=== PATIENT | female | born 1955 | race Caucasian/White ===

== ENCOUNTER 2016-10-10 07:03 | Emergency (ER) | payer OTHER ==
[2016-10-10 07:16] VITALS: BP 173/82
--- NOTE | 2016-10-10 07:25 | UC ---
Throat Pain/Nasal Dionisio HPI - HPI Summary HPI Summary: SORE THROAT X 5 DAYS + COUGH , CHEST CONGESTION, + CHILLS, NO FEVER + EXPOSURE TO STREP - History of Current Complaint Chief Complaint: UCRespiratory Stated Complaint: SORE THROAT COUGH Time Seen by Provider: 10/10/16 07:05 Hx Obtained From: Patient Hx Last Menstrual Period: n/a ?: No Onset/Duration: Gradual Onset, Lasting Days - 5, Still Present Severity: Moderate Cough: Nonproductive Associated Signs & Symptoms: Positive: Nasal Discharge. Negative: Dysphagia, Drooling, Wheezing, Sinus Discomfort, Fever, Vomiting, Rash PMH/Surg Hx/FS Hx/Imm Hx Endocrine History Of: Denies: Diabetes, Thyroid Disease Cardiovascular History Of: Reports: Hypertension Denies: Cardiac Disorders Respiratory History Of: Denies: COPD GI/ History Of: Reports: Ulcer - 2013 - Surgical History Surgical History: Yes Surgery Procedure, Year, and Place: hysterectomy, right knee surgery 08/30/15 - Family History Known Family History: Positive: Cardiac Disease, Hypertension - Social History Alcohol Use: Rare Substance Use Type: None Smoking Status (MU): Light Every Day Tobacco Smoker Type: Cigarettes Amount Used/How Often: 5 cigarettes daily Review of Systems Constitutional: Chills, Fatigue Skin: Negative Eyes: Negative ENT: Sore Throat, Nasal Discharge Respiratory: Cough Cardiovascular: Negative Gastrointestinal: Negative Genitourinary: Negative All Other Systems Reviewed And Are Negative: Yes Physical Exam Triage Information Reviewed: Yes Appearance: Well-Appearing, No Pain Distress, Well-Nourished Vital Signs: Initial Vital Signs Temp 98.2 F 10/10/16 07:04 Pulse 75 10/10/16 07:04 Resp 22 10/10/16 07:04 BP 173/82 10/10/16 07:04 Pulse Ox 96 10/10/16 07:04 Vital Signs Reviewed: Yes Eye Exam: Normal Eyes: Positive: Conjunctiva Clear ENT: Positive: Pharyngeal erythema, Nasal congestion, Nasal drainage, TMs normal Neck: Positive: Supple, Nontender, No Lymphadenopathy Respiratory: Positive: Chest non-tender, Lungs clear, Normal breath sounds, No respiratory distress Cardiovascular: Positive: RRR, No Murmur, Pulses Normal Skin Exam: Normal Throat Pain/Nasal Course/Dx - Differential Dx/Diagnosis Provider Diagnoses: VIRAL BRONCHITIS Discharge - Discharge Plan Condition: Stable Disposition: HOME Prescriptions: Benzonatate CAP* [Tessalon 100 MG CAP*] 100 mg PO TID #21 cap Patient Education Materials: Acute Bronchitis (ED) Referrals: CELE Hodges [Primary Care Provider] - 7 Days
== END 2016-10-10 08:03 | disposition home or self-care (01) ==
LOC: UCCORT 07:03
DX: J20.8 Acute bronchitis due to other specified organisms (principal); F17.210 Nicotine dependence, cigarettes, uncomplicated; I10 Essential (primary) hypertension
CPT/HCPCS: 87651; 99212; G0463

== ENCOUNTER 2017-01-06 10:45 | Emergency (ER) | payer OTHER ==
--- NOTE | 2017-01-06 12:02 | UC ---
Lower Extremity/Ankle HPI - HPI Summary HPI Summary: "c/o left knee pain extending down back of leg, and right calf pain worsening for 2 weeks. Denies injury and unable to describe type of pain." Pain worsening over past 2 wks. Pain mostly at left upper calf and posterior left thigh. painful. Denies CP and SOB. no personal or FHx DVTs, PEs or clotting def. takes ASA 81mgs. Takes BP meds. - History of Current Complaint Chief Complaint: UCLowerExtremity Stated Complaint: LEG PAIN/SWELLING Time Seen by Provider: 01/06/17 11:59 Hx Last Menstrual Period: n/a - Allergies/Home Medications Allergies/Adverse Reactions: Allergies Allergy/AdvReac Type Severity Reaction Status Date / Time No Known Allergies Allergy Verified 01/06/17 11:30 Home Medications: Home Medications Cholecalciferol [Vitamin D] 1,000 unit PO DAILY 01/06/17 [History Confirmed 02/15] Hydrochlorothiazide TAB* [Hydrodiuril TAB*] 12.5 mg PO DAILY 01/06/17 [History Confirmed 01/06/17] Omeprazole CAP* [Prilosec CAP* 20 MG] 20 mg PO DAILY 01/06/17 [History Confirmed 01/06/17] PMH/Surg Hx/FS Hx/Imm Hx Previously Healthy: Yes Cardiovascular History: Hypertension - Surgical History Surgical History: Yes Surgery Procedure, Year, and Place: hysterectomy, right knee surgery 08/30/15 - Family History Known Family History: Positive: Cardiac Disease, Hypertension Negative: Blood Disorder - denies - Social History Alcohol Use: Rare Substance Use Type: None Smoking Status (MU): Light Every Day Tobacco Smoker Type: Cigarettes Amount Used/How Often: 5 cigarettes daily Review of Systems Constitutional: Negative Skin: Negative Eyes: Negative ENT: Negative Respiratory: Negative Cardiovascular: Negative Gastrointestinal: Negative Genitourinary: Negative Motor: Negative Neurovascular: Negative Musculoskeletal: Other: - left calf pain Neurological: Negative Psychological: Negative All Other Systems Reviewed And Are Negative: Yes Physical Exam Triage Information Reviewed: Yes Appearance: Well-Nourished, Pain Distress - but still laughs. Vital Signs: Initial Vital Signs Temp 98.4 F 01/06/17 11:23 Pulse 98 01/06/17 11:23 Resp 18 01/06/17 11:23 BP 189/88 01/06/17 11:23 Pulse Ox 97 01/06/17 11:23 Vital Signs Reviewed: Yes Eye Exam: Normal ENT Exam: Normal ENT: Positive: Pharynx normal Dental Exam: Normal Neck exam: Normal Neck: Positive: Supple, Nontender, No Lymphadenopathy Respiratory Exam: Normal Respiratory: Positive: Lungs clear, Normal breath sounds, No respiratory distress, No accessory muscle use. Negative: Crackles, Rhonchi, Stridor, Wheezing Cardiovascular Exam: Normal Cardiovascular: Positive: RRR, No Murmur, Pulses Normal, Brisk Capillary Refill Abdominal Exam: Normal Abdomen Description: Positive: Nontender, Soft Musculoskeletal: Positive: Other: - tenderness at left upper posterior calf and distal posterior left thigh. possibly slightly warm to touch. no discharge, no rash. difficult to flex knee b/c pain Neurological Exam: Normal Psychological Exam: Normal Skin Exam: Normal Lower Extremity Course/Dx - Course Course Of Treatment: Needs claude have US to r/o DVT. She is agreeable but declines ambulance. Called to drive her. Informed of risks of going by private car. - Differential Dx/Diagnosis Differential Diagnosis/HQI/PQRI: Cellulitis, DVT, Infection, Other - popliteal cyst (which can be assoc with DVT) Provider Diagnoses: left leg pain, HTN - Physician Notifications Discussed Patient Care With: Roxane Wallace NP Time Discussed With Above Provider: 12:14 Discharge - Discharge Plan Condition: Fair Disposition: AGAINST MEDICAL ADVICE
[2017-01-06 12:23] VITALS: BP 150/90
== END 2017-01-06 12:23 | disposition left against medical advice (07) ==
LOC: UCCORT 10:45
DX: M79.605 Pain in left leg (principal); I10 Essential (primary) hypertension; Z72.0 Tobacco use
CPT/HCPCS: 99213; G0463

== ENCOUNTER 2017-03-03 08:31 | Emergency (ER) | payer OTHER ==
[2017-03-03 08:42] VITALS: BP 195/111
--- NOTE | 2017-03-03 08:57 | UC ---
Abdominal Pain Female HPI - HPI Summary HPI Summary: Pat is here today seeking treatment for diverticulitis. Patient has had LLQ pain for 4 days, with fever up to 101..she is keeping down clear liquids. - History of Current Complaint Chief Complaint: UCAbdominalPain Stated Complaint: ABD,BACK PAIN/NAUSEA Time Seen by Provider: 03/03/17 08:38 Hx Obtained From: Patient Hx Last Menstrual Period: n/a ?: No Onset/Duration: Sudden Onset, Lasting Days - 4, Still Present Timing: Constant Severity Initially: Moderate Severity Currently: Moderate Pain Intensity: 7 Pain Scale Used: 0-10 Numeric Location: Discrete At: LLQ Character: Aching Aggravating Factor(s): Nothing Alleviating Factor(s): Nothing Associated Signs and Symptoms: Positive: Fever, Nausea, Vomiting Allergies/Adverse Reactions: Allergies Allergy/AdvReac Type Severity Reaction Status Date / Time No Known Allergies Allergy Verified 03/03/17 08:38 Home Medications: Home Medications Acetaminophen TAB* [Tylenol TAB*] 650 mg PO Q6H PRN 03/03/17 [History Confirmed 03/03/17] Aspirin EC Low Dose* [Ecotrin EC Low Dose 81 MG*] 81 mg PO DAILY 03/03/17 [ History Confirmed 03/03/17] Citalopram TAB* [CeleXA TAB*] 20 mg PO DAILY 03/03/17 [History Confirmed ] Hydrochlorothiazide TAB* [Hydrodiuril TAB*] 25 mg PO DAILY 03/03/17 [History Confirmed 03/03/17] Meloxicam(NF) [Mobic(NF)] 15 mg PO DAILY 03/03/17 [History Confirmed 03/03/17] Omeprazole CAP* [Prilosec CAP* 20 MG] 20 mg PO DAILY 03/03/17 [History Confirmed 03/03/17] Vitamin D CAP* [Drisdol CAP*] 50,000 units PO WEEKLY 03/03/17 [History Confirmed 03/03/17] amLODIPine TAB* [Norvasc 5 mg TAB*] 5 mg PO DAILY 03/03/17 [History Confirmed ] PMH/Surg Hx/FS Hx/Imm Hx Previously Healthy: No Cardiovascular History: Hypertension GI/ History: Gastroesophageal Reflux, Diverticulitis Psychological History: Depression - Surgical History Surgical History: Yes Surgery Procedure, Year, and Place: hysterectomy, right knee surgery 08/30/15 - Family History Known Family History: Positive: Cardiac Disease, Hypertension Negative: Blood Disorder - denies - Social History Occupation: Retired Lives: With Family Alcohol Use: Rare Substance Use Type: None Smoking Status (MU): Light Every Day Tobacco Smoker Type: Cigarettes Amount Used/How Often: 8 cigarettes daily Length of Time of Smoking/Using Tobacco: On and Off Since Age 22 Have You Smoked in the Last Year: Yes Household Exposure Type: Cigarettes - Immunization History Most Recent Influenza Vaccination: Not the Season Review of Systems Constitutional: Fever Skin: Negative Eyes: Negative ENT: Negative Respiratory: Negative Cardiovascular: Negative Gastrointestinal: Abdominal Pain, Vomiting, Nausea Genitourinary: Negative Motor: Negative Neurovascular: Negative Musculoskeletal: Negative Neurological: Negative Psychological: Negative All Other Systems Reviewed And Are Negative: Yes Physical Exam Triage Information Reviewed: Yes Appearance: Ill-Appearing, Pain Distress, Obese Vital Signs: Initial Vital Signs Temp 98.3 F 03/03/17 08:35 Pulse 94 03/03/17 08:35 Resp 18 03/03/17 08:35 BP 195/111 03/03/17 08:35 Pulse Ox 100 03/03/17 08:35 Vital Signs Reviewed: Yes Eye Exam: Normal Eyes: Positive: Conjunctiva Clear ENT Exam: Normal ENT: Positive: Normal ENT inspection, Hearing grossly normal. Negative: Nasal congestion, Nasal drainage, Trismus, Muffled/hoarse voice Dental Exam: Normal Neck exam: Normal Neck: Positive: Supple, Nontender Respiratory Exam: Normal Respiratory: Positive: Chest non-tender, Lungs clear, Normal breath sounds, No respiratory distress, No accessory muscle use Cardiovascular Exam: Normal Cardiovascular: Positive: RRR, No Murmur, Pulses Normal, Brisk Capillary Refill Abdominal Exam: Normal Abdomen Description: Positive: No Organomegaly, Soft, Distended, Other: - left lower quad. pain. Negative: CVA Tenderness (R), CVA Tenderness (L), McBurney's Point Tenderness Bowel Sounds: Positive: Hypoactive Musculoskeletal Exam: Normal Musculoskeletal: Positive: Strength Intact, ROM Intact, No Edema Neurological Exam: Normal Neurological: Positive: Alert, Muscle Tone Normal Psychological Exam: Normal Skin Exam: Normal Diagnostics - Laboratory Diagnostic Studies Completed/Ordered: ua-+bili Abd Pain Female Course/Dx - Course Course Of Treatment: clear liquids, bactrim, flagyl, pain med, AMA as patient refuses evaluation in ED... - Differential Dx/Diagnosis Differential Diagnosis: Bowel Obstruction, Diverticulitis, Irritable Bowel Syndrome, Peptic Ulcer Disease, Urinary Tract Infection Provider Diagnoses: Abdomen pain, Diverticulitis by history Discharge - Discharge Plan Condition: Fair Disposition: AGAINST MEDICAL ADVICE Prescriptions: Hydrocodone-Acetaminophen [Hydrocodone/Acetaminophen 5-325 mg] 1 tab PO Q4H PRN #10 tab MDD 6 PRN Reason: Pain Metronidazole [Flagyl 500 MG TAB] 500 mg PO TID #30 tab Sulfamethox/Trimethoprim DS* [Bactrim DS 800/160 TAB*] 1 tab PO BID #20 tab Patient Education Materials: Hypertension (ED), Diverticulitis (ED), Diverticulitis Diet (ED) Referrals: Natasha Milligan MD [Medical Doctor] - As Soon As Possible Additional Instructions: I am very concerned about your abdomen pain today. I continue to strongly recommend that you go to the emergency department for a complete evaluation of this pain.
[2017-03-03] MEDS ORDERED: Ketorolac INJ* 60 MG/2 ML VIAL IM ONE (08:59)
== END 2017-03-03 09:15 | disposition left against medical advice (07) ==
LOC: UCCORT 08:31
DX: R10.32 Left lower quadrant pain (principal); K57.92 Diverticulitis of intestine, part unspecified, without perforation or abscess without bleeding; I10 Essential (primary) hypertension; K21.9 Gastro-esophageal reflux disease without esophagitis; F32.9 Major depressive disorder, single episode, unspecified; Z53.20 Procedure and treatment not carried out because of patient's decision for unspecified reasons
CPT/HCPCS: 81003; 96372; 99213; G0463; J1885

== ENCOUNTER 2017-11-06 11:58 | Inpatient (IN) | payer MEDICARE, MEDICAID ==
--- NOTE | 2017-10-30 11:08 | HP ---
AMENDED REPORT NOW INCLUDES COSIGNER DESIGNATION - ESIGNED BEFORE ADJUSTMENT HISTORY AND PHYSICAL: DATE OF SURGERY: 11/06/17 DATE OF OFFICE VISIT: 10/26/17 ATTENDING SURGEON: Serena Holguin MD * (DICTATED BY KATIA LOPES) PROCEDURE: Right total knee arthroplasty. CHIEF COMPLAINT: Right knee pain. HISTORY OF PRESENT ILLNESS: Ms. Murrieta is a 62-year-old female with continued complaints of right knee pain. She has failed conservative management and elected to proceed with a right total knee arthroplasty, which is scheduled for 11/06/[address] Holguin. PAST MEDICAL HISTORY: 1. Hypertension. 2. History of bleeding. 3. Gastric ulcer. 4. GERD. 5. High cholesterol. PAST SURGICAL HISTORY: 1. Bilateral knee arthroscopies. 2. Hysterectomy. 3. Right foot surgery unknown. 4. Appendectomy. 5. Unknown abdominal surgery. CURRENT MEDICATIONS: 1. Omeprazole 20 mg daily. 2. Amlodipine 10 mg daily. 3. Carvedilol 12.5 mg daily. 4. Citalopram hydrobromide 20 mg daily. 5. Atorvastatin calcium 40 mg daily. 6. Turmeric. 7. Multivitamin. ALLERGIES: DARVOCET. FAMILY HISTORY: Coronary artery disease, cancer, COPD, and lupus. SOCIAL HISTORY: She is a 62-year-old female. She lives with her . She smokes about half a pack a day. Occasional marijuana and occasional alcohol. REVIEW OF SYSTEMS: A complete 14-point review of systems was reviewed with the patient, it was positive for history of hepatitic C infection 4 years ago, GERD. She denies history of DVT, PE, or anesthesia problems. PHYSICAL EXAMINATION GENERAL: She is well developed, well nourished, in no acute distress. VITAL SIGNS: She stands 5 feet 1 inch tall, weight 170 pounds. Her blood pressure is 170/84, heart rate is 84. HEENT: Normocephalic, atraumatic. NECK: Supple. No palpable lymph nodes. PULMONARY: Lungs are clear to auscultation bilaterally. CARDIO: Regular rate and rhythm. Strong S1 and S2. ABDOMEN: Soft, nontender, and nondistended. NEUROLOGIC: She is alert and oriented x3. Cranial nerves II through XII are intact. Musculoskeletal: Right lower extremity, the skin is intact. There are no open wounds or abrasions. There is moderate joint effusion. Range of motion is 15 to 120 degrees of flexion. 2+ dorsalis pedis pulses. She has intact sensation in her lower extremities. Muscle group strengths are intact at 5/5. ASSESSMENT AND PLAN: Ms. Murrieta 62-year-old female with complaints of right knee pain secondary to end-stage osteoarthritis. She has failed conservative management and elected to proceed with a right total knee arthroplasty, which is scheduled for 11/06/[address] Holguin discussed the risks and benefits of the surgery at today's visit and all of her questions were answered. She will follow up with Dr. Holguin 2 weeks after the surgery. KATIA LOPES [id number]/CPS #: [id number] MTDD
[~2017-11-06 11:58] MED LIST: Acetaminophen IV 1GM/100ML * 1,000 MG/100 ML VIAL IVPB ONE; Buffered Lidocaine 0.9% SYRIN* 5 ML/SYR SYRINGE INTRADERM ONE; Bupivacaine 0.5% PF 10 ML VIAL INJ ONE; Dexamethasone IV* 4 MG/ML 1 ML (4 MG) IV SLOW PU ONE; Famotidine TAB* 20 MG PO ONE; Gabapentin CAP(*) 300 MG PO ONE; Midazolam* 1 MG/ML 5 ML VIAL (5 MG) ONE; Ondansetron INJ* 2 MG/ML VIAL ONE; Propofol* 10 MG/ML 20 ML BTL IV PUSH ONE; Scopolamine 1.5 mg* PATCH TRANSDERM ONE; celeCOXIB CAP* 200 MG PO ONE; fentaNYL* 50 MCG/ML 2 ML VIAL (100 MCG VIAL) ONE
[2017-11-06] MEDS ORDERED: Gabapentin CAP(*) 300 MG ONE (12:23)
[2017-11-06] MEDS ORDERED: celeCOXIB CAP* 100 MG ONE (12:23)
[2017-11-06] MEDS ORDERED: Scopolamine 1.5 mg* PATCH ONE (12:23)
[2017-11-06] MEDS ORDERED: Famotidine TAB* 20 MG ONE (12:23)
[2017-11-06] MEDS ORDERED: Dexamethasone IV* 4 MG/ML 1 ML (4 MG) ONE (12:23)
[2017-11-06] MEDS ORDERED: ceFAZolin 2 GM PREMIX (*) 2 GM/50 ML BAG IVPB ONE (12:23)
[2017-11-06] MEDS ORDERED: ROPIVACAINE 5 MG/ML 30 ML BTL (0.5%) ONE (12:47)
[2017-11-06] MEDS ORDERED: Acetaminophen IV 1GM/100ML * 100 ML ONE (12:57)
[2017-11-06] MEDS ORDERED: Midazolam* 1 MG/ML 5 ML VIAL (5 MG) ONE (13:38)
[2017-11-06] MEDS ORDERED: Bupivacaine 0.25% SDV* 30 ML ONE (13:42)
[2017-11-06] MEDS ORDERED: Magnesium Hydroxide LIQ* 30 ML UDC PO PRN (13:58)
[2017-11-06] MEDS ORDERED: Bisacodyl SUPP* 10 MG SUPP PR PRN (13:58)
[2017-11-06] MEDS ORDERED: Ondansetron INJ* 2 MG/ML VIAL IV PRN ×2 (13:58→14:10)
[2017-11-06] MEDS ORDERED: Polyethylene Glycol 3350* 17 GM PACKET PO PRN (13:58)
[2017-11-06] MEDS ORDERED: Ondansetron TAB* 4 MG PO PRN (13:58)
[2017-11-06] MEDS ORDERED: diPHENhydraMINE IV* 50 MG/ML 1 ml VIAL (BENADRYL) IV PRN (13:58)
[2017-11-06] MEDS ORDERED: Cyclobenzaprine TAB* 10 MG PO PRN (13:58)
[2017-11-06] MEDS ORDERED: fentaNYL* 50 MCG/ML 2 ML VIAL (100 MCG VIAL) IV PRN (14:10)
[2017-11-06] MEDS ORDERED: DiMENhydriNATE IV* 50 MG/ML VIAL IV PUSH PRN (14:10)
[2017-11-06] MEDS ORDERED: Naloxone* 0.4 MG/ML 1 ML VIAL IV PRN (14:10)
[2017-11-06] MEDS ORDERED: HYDROmorphone INJ* 1 MG/ML CARPUJECT SYRINGE IV PRN (14:10)
[2017-11-06] MEDS ORDERED: Morphine TAB Extended Release (*) 30 MG TAB.ER PO SCH (15:00)
[2017-11-06] MEDS ORDERED: Propofol* 10 MG/ML 20 ML BTL IV PUSH ONE (15:20)
--- NOTE | 2017-11-06 16:37 | RAD ---
Indication: Immediate postop exam following RIGHT total knee replacement. Comparison: October 10, 2017 Technique: Portable AP and cross table lateral views RIGHT knee. Report: Status post total knee replacement. Post-op fluid and gas is seen in the joint space and anterior subcutaneous tissues. Alignment is anatomic. No periprosthetic fracture evident. IMPRESSION: Unremarkable immediate postoperative appearance following RIGHT knee replacement.
[2017-11-06] MEDS ORDERED: Warfarin TAB(*) 6 MG PO ONE (17:00)
[2017-11-06] MEDS: Morphine VIAL* 4 MG/ML VIAL (1 ml vial) IV PRN ×3 (18:47→23:20)
[2017-11-06] MEDS: Magnesium Hydroxide LIQ* 30 ML UDC PO SCH (20:44)
[2017-11-06] MEDS: Docusate CAP* 100 MG PO SCH (20:44)
[2017-11-06] MEDS: oxyCODONE TAB* 5 MG TAB PO PRN (21:38)
[2017-11-06] MEDS: ceFAZolin 1 GM in Dextrose (*) 1 GM/50 ML BAG IVPB SCH (21:38)
[2017-11-07] MEDS: Morphine TAB Extended Release (*) 30 MG TAB.ER PO SCH ×2 (00:44→12:29)
[2017-11-07] MEDS: Morphine VIAL* 4 MG/ML VIAL (1 ml vial) IV PRN ×2 (03:36→07:05)
--- NOTE | 2017-11-07 04:46 | CONS ---
CC: Dr. Black; Dr. Serena Holguin * CONSULTATION REPORT: DATE OF CONSULT: 11/06/17 PRIMARY CARE PROVIDER: Dr. Black. PHYSICIAN REQUESTING CONSULTATION: Dr. Serena Holguin. ATTENDING PHYSICIAN: Dr. Katy Chi MD (dictated by Glenna Nolan NP) REASON FOR CONSULT: Co-medical management in a patient with a history of hypertension, gastric ulcers, GERD, hyperlipidemia, anxiety, tobacco abuse, history of hep C and cirrhosis, gout, diverticulitis, prediabetes mellitus and a pulmonary nodule. HISTORY OF PRESENT ILLNESS: Ms. Murrieta is a 62-year-old female with past medical history significant for hypertension, gastric ulcer, GERD, hyperlipidemia, anxiety, tobacco abuse, hep C status post SVR, cirrhosis, positive rheumatoid factor suspect secondary to hep C, gout, diverticulitis, prediabetes, pulmonary nodule, who presented to the hospital for an elective right total knee arthroplasty with Dr. Serena Holguin today. The patient states that leading up to her surgery she has been in her usual state of health. She denies any fever, chills, chest pain, shortness of breath, nausea, vomiting, diarrhea, or urinary symptoms. The patient reports that she is not medically compliant taking her medications approximately every other day. The patient has reported different medication list. The list on her medication reconciliation that she is occasionally taking, don't match the medication list that orthopedics or her PCP report. I attempted to call her Pharmacy ([facility] ) who report that she hasn't filled any prescriptions since March of 2017. When questioned about not getting medications since March, she replied " That tells you how often I take them". I have asked her to have her family bring in her medication bottles, so that we can see what she has at home. It is also to note that the patient reports that her sister recently had a total knee arthroplasty and sometime during the postoperative period from a pulmonary embolus. The Hospitalists were asked to evaluate the patient for co- medical management during her hospitalization. PAST MEDICAL HISTORY: 1. Hypertension. 2. Gastric ulcer. 3. GERD. 4. Hyperlipidemia. 5. Anxiety. 6. Tobacco abuse. 7. Hepatitis C, status post SVR. 8. Cirrhosis. 9. 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 10. Gout. 11. Diverticulitis. 12. Prediabetes mellitus. 13. Pulmonary nodule. PAST SURGICAL HISTORY: 1. Status post bilateral knee arthroscopies. 2. Status post hysterectomy. 3. Status post right foot surgery. 4. Status post appendectomy. 5. Status post cataract extractions. HOME MEDICATIONS: Per PCP list Include: 1. Omeprazole 20 mg oral daily. 2. Amlodipine 10 mg oral daily. 3. Citalopram 20 mg oral daily. 4. Atorvastatin 40 mg oral daily. 5. Tylenol with Codeine #3 300/30 mg oral every 12 hours as needed for pain. 6. Vitamin D 1000 units oral daily. 7. Ventolin HFA inhaler 108 mcg 2 puffs inhalation every 4 to 6 hours as needed for shortness of breath or wheeze. 8. Hydrochlorothiazide 12.5 mg oral daily. Per Patient (Pt states that she does not take them frequently): 1. Omeprazole 20 mg oral daily. 2. Amlodipine 10 mg oral daily. 3. Carvedilol 12.5 mg oral daily. 4. Citalopram 20 mg oral daily. 5. Atorvastatin 40 mg oral daily. 6. Vitamin D 1000 units oral daily. 7. Ventolin HFA inhaler 108 mcg 2 puffs inhalation every 4 to 6 hours as needed for shortness of breath or wheeze. 8. Valsartan 320 mg PO daily. ALLERGIES: DARVON, PROPOXYPHENE and HYDROXYZINE. FAMILY HISTORY: The patient's father had a history of coronary artery disease, mother with a history of lung cancer, sister with a history of stomach cancer, brother with a history of liver cancer, sister with a history of pulmonary embolus. SOCIAL HISTORY: The patient reports smoking approximately half-a-pack a day. She has approximately 45-year smoking history. She occasionally smokes marijuana and occasionally drinks alcohol. Her daughters, Maribell and Carla Schultz, will be her surrogate decision makers in the event she is unable to make decisions for herself. REVIEW OF SYSTEMS: I performed an 11-point review of systems. All the pertinent positive and negatives are mentioned in the history of present illness. The remaining review of systems are negative. PHYSICAL EXAM: Vital Signs: Temperature 96.8, heart rate 61, respiratory rate 13, O2 sat 94% on room air, blood pressure 101/73. General Appearance: The patient is alert, pleasant, appears to be in no acute distress. HEENT: Normocephalic, atraumatic. Pupils are equal and reactive to light. Extraocular movements are intact. Respiratory: There is no accessory muscle use. The lungs are clear to auscultation bilaterally. Cardiovascular: Regular rate and rhythm. S1, S2 present. There are no murmurs, rubs or gallops heard. Abdomen: Soft, nontender, nondistended. There are bowel sounds present x4. Extremities: There is no lower extremity edema. DP and PT pulses are 2+ and symmetric. Musculoskeletal: There is no clubbing or cyanosis noted. The patient exhibits good strength in all extremities. Neurological: The patient is alert and oriented x4. Cranial nerves II through XII are grossly intact. Psychological: The patient is calm and cooperative. Skin: There are no rashes or abnormalities seen. The patient has a dressing to her right knee that is clean, dry and intact. DIAGNOSTIC STUDIES/LAB DATA: Sodium 140, potassium 4.3, chloride 108, CO2 23, BUN 25, creatinine 0.8, glucose 154. White blood cell count 7.5, hemoglobin 16.1, hematocrit 47.9, platelet count 204. IMPRESSION: Ms. Murreita is a 62-year-old female with past medical history significant for hypertension, gastric ulcer, gastroesophageal reflux disease, hyperlipidemia, anxiety, tobacco abuse, history of hepatitis C, cirrhosis, positive rheumatoid factor, gout, diverticulitis, prediabetes mellitus and pulmonary nodule, who presented to the hospital for an elective right total knee arthroplasty today. Hospitalists were asked to assist with co-medical management on this patient during her hospitalization. ASSESSMENT/PLAN: 1. Status post right total knee arthroplasty. Management will be per Orthopedic Surgery. The patient will have her H and H trended. She will have physical therapy and occupational therapy in the morning. She will have urinary catheter in place through the morning. She will be placed on a bowel regimen and pain medications. 2. Hypertension. The patient's blood pressures have been labile during her stay. She has been 100 systolic to 170s. I am going to continue carvedilol with hold parameters. For now, I am going to hold her other reported antihypertensives until I can verify what she is actually taking. We should reconcile her medications through the primary care provider and then resume antihypertensives accordingly going forward. I have requested a medication list from her PCP. 3. Gastroesophageal reflux disease. The patient will be continued on her home omeprazole. 4. Anxiety. The patient will be continued on her home citalopram. 5. Hyperlipidemia. The patient will be continued on her home atorvastatin. 6. History of hepatitis C and cirrhosis. The patient should continue to follow with her primary care provider. 7. Positive rheumatoid factor. Suspect this is secondary to her hepatitis C. She should continue to follow with her primary care provider. 8. Prediabetes mellitus. The patient had a hemoglobin A1c of 6.2 in May of 2017 and 6.4 in September of 2017. She should be on a consistent carbohydrate diet. 9. History of pulmonary nodule. The patient was found to have a 3 mm right upper lobe pulmonary nodule in 2015. She should have outpatient followup for this. 10. Fluids, electrolytes, and nutrition: The patient will be on a consistent carbohydrate diet. 11. Code status: Full code. 12. DVT prophylaxis: The patient will be on warfarin with a Lovenox bridge per Orthopedic Surgery. 13. Disposition: Inpatient. Disposition per Orthopedic Surgery. Thank you for this consultation. We will continue to follow along with this patient. We will continue to adjust her antihypertensives. TIME SPENT: Time for this consultation was approximately 60 minutes, greater than half of that was spent with the patient discussing medications, past medical history, the events leading up to her arrival today, performing a physical examination. Reviewed by CHARY VICNENT 11/07/17 [id number]/[facility] #: [id number] [place]
[2017-11-07] MEDS: ceFAZolin 1 GM in Dextrose (*) 1 GM/50 ML BAG IVPB SCH ×2 (05:45→13:18)
[2017-11-07] MEDS: oxyCODONE TAB* 5 MG TAB PO PRN ×4 (05:45→22:32)
[2017-11-07 06:07] LABS: Hematocrit 39 % (35-47); Hemoglobin 13.1 g/dl (12.0-16.0); Mean Platelet Volume 9.2 um3 (7.4-10.4); Platelet Count 177 10^3/ul (150-450)
[2017-11-07 06:17] LABS: INR 1.1 (0.77-1.02)
[2017-11-07 06:23] LABS: EGFR Non-African American 81.6 (>60)
[2017-11-07] MEDS ORDERED: CARVEDILOL 12.5 MG PO SCH (09:00)
[2017-11-07] MEDS ORDERED: VALSARTAN 320 MG PO SCH (09:00)
[2017-11-07] MEDS ORDERED: amLODIPine TAB* 5 MG PO SCH (09:00)
[2017-11-07] MEDS ORDERED: Carvedilol TAB* 6.25 MG PO SCH (09:00)
[2017-11-07] MEDS ORDERED: Acetaminophen TAB* 325 MG PO PRN (09:20)
[2017-11-07] MEDS ORDERED: oxyCODONE/Acetamin 5/325 MG* TAB PO PRN (09:21)
[2017-11-07] MEDS ORDERED: oxyCODONE/Acetamin 5/325 MG* TAB ONE (09:26)
[2017-11-07] MEDS: Magnesium Hydroxide LIQ* 30 ML UDC PO SCH ×2 (09:28→20:21)
[2017-11-07] MEDS: Docusate CAP* 100 MG PO SCH ×2 (09:29→20:21)
[2017-11-07] MEDS: Atorvastatin* 40 MG TAB PO SCH (09:29)
[2017-11-07] MEDS: oxyCODONE/Acetamin 5/325 MG* TAB PO PRN ×3 (09:30→20:21)
--- NOTE | 2017-11-07 12:05 | PN ---
Progress Note - Progress Note Date of Service: 11/07/17 SOAP: Subjective: []Patient seen at bedside. Her pain was not well controlled this morning, she did not have a percocet or tylenol order in place. Denies chest pain, shortness of breath, dizziness. Objective: [] Laboratory Last Values Hgb 13.1 g/dl (12.0-16.0) 11/07/17 05:45 Hct 39 % (35-47) 11/07/17 05:45 Plt Count 177 10^3/ul (150-450) 11/07/17 05:45 MPV 9.2 um3 (7.4-10.4) 11/07/17 05:45 INR (Anticoag Therapy) 1.10 (0.77-1.02) H 11/07/17 05:45 Sodium 136 mmol/L (139-145) L 11/07/17 05:45 Potassium 4.5 mmol/L (3.5-5.0) 11/07/17 05:45 Chloride 103 mmol/L (101-111) 11/07/17 05:45 Carbon Dioxide 29 mmol/L (22-32) 11/07/17 05:45 Anion Gap 4 mmol/L (2-11) 11/07/17 05:45 BUN 18 mg/dL (6-24) 11/07/17 05:45 Creatinine 0.72 mg/dL (0.51-0.95) 11/07/17 05:45 Est GFR ( Amer) 104.9 (>60) 11/07/17 05:45 Est GFR (Non-Af Amer) 81.6 (>60) 11/07/17 05:45 BUN/Creatinine Ratio 25.0 (8-20) H 11/07/17 05:45 Glucose 123 mg/dL (70-100) H 11/07/17 05:45 Calcium 9.2 mg/dL (8.6-10.3) 11/07/17 05:45 Vital Signs Temp 97.3 F 11/07/17 07:21 Pulse 58 11/07/17 07:21 Resp 20 11/07/17 11:40 BP 130/66 11/07/17 07:21 Pulse Ox 96 11/07/17 08:00 Intake & Output 11/06/17 11/07/17 11/07/17 18:59 06:59 18:59 Intake Total 1850 2500 225 Output Total 150 2049 200 Balance 1700 450 25 Weight 185 lb Intake: IV Fluids 1850 LR 1800 NS 50ML, Cefazolin 2G 50 Oral 2500 225 Output: Urine 200 Lawrence 150 2049 General: Well appearing, NAD RLE: Dressing dry, intact. Small amount of dried blood anteriorly. No erythema above or below dressing. DF/PF intact. Able to flex and extend at knee. DP 2+ . Sensation intact distally. BL LE: Calves supple and nontender without erythema, edema or palpable cords. Assessment: []POD 1 sp right total knee arthroplasty 11/07/17 Dr Holguin Plan: []WBAT PT/OT LOvenox, coumadin 6 mg Percocet and tylenol order placed to optimize pain control
[2017-11-07] MEDS: Valsartan TAB* 160 MG PO SCH (12:29)
[2017-11-07] MEDS: Enoxaparin(*) 30 MG/0.3 ML SYR SUBCUT SCH (12:30)
--- NOTE | 2017-11-07 15:18 | PN ---
Subjective Date of Service: 11/07/17 Interval History: Patient complains of severe pain in leg with any movement and 5/10 pain at rest. Patient denied F/C, N/V, abdominal pain, CP, SOB, diarrhea, Dysuria, or other pain. Patient has urinated. Patient is passing flatus but has had no BM. Patient is visibly very anxious about situation. Patient asked numerous questions which were answered to her satisfaction. Family History: Unchanged from Admission Social History: Unchanged from Admission Past Medical History: Unchanged from Admission Objective Active Medications: Acetaminophen (Tylenol Tab*) 650 mg PO Q4H PRN PRN Reason: PAIN OR FEVER Atorvastatin Calcium (Lipitor*) 40 mg PO QAM [facility] Last Admin: 11/07/17 09:29 Dose: 40 mg Bisacodyl (Dulcolax Supp*) [address] DAILY PRN PRN Reason: constipation Citalopram Hydrobromide (Celexa Tab*) 20 mg PO DAILY [facility] Cyclobenzaprine HCl (Flexeril Tab*) 10 mg PO TID PRN PRN Reason: SPASMS Last Admin: 11/07/17 00:43 Dose: 10 mg Diphenhydramine HCl (Benadryl Iv*) 12.5 mg IV Q6H PRN PRN Reason: PRURITIS Docusate Sodium (Colace Cap*) 100 mg PO BID [facility] Last Admin: 11/07/17 09:29 Dose: 100 mg Enoxaparin Sodium (Lovenox(*)) 30 mg SUBCUT Q24H [facility] Last Admin: 11/07/17 12:30 Dose: 30 mg Lactated Ringer's (Lactated Ringers 1000 Ml Bag*) 1,000 mls @ 100 mls/hr IV PER RATE [facility] Lactulose (Lactulose*) 30 ml PO Q6H PRN PRN Reason: constipation Magnesium Hydroxide (Milk Of Magnesia Liq*) 30 ml PO BID [facility] Last Admin: 11/07/17 09:28 Dose: 30 ml Magnesium Hydroxide (Milk Of Magnesia Liq*) 30 ml PO Q6H PRN PRN Reason: constipation Morphine Sulfate (Morphine Vial*) 2 mg IV Q2H PRN PRN Reason: PAIN Last Admin: 11/07/17 07:05 Dose: 2 mg Morphine Sulfate (Ms Contin(*)) 30 mg PO 0000,1200 [facility] Last Admin: 11/07/17 12:29 Dose: 30 mg Omeprazole (Prilosec Cap*) 20 mg PO DAILY [facility] Ondansetron HCl (Zofran Inj*) 4 mg IV Q6H PRN PRN Reason: nausea Ondansetron HCl (Zofran Tab*) 4 mg PO Q6H PRN PRN Reason: NAUSEA Oxycodone HCl (Roxycodone Tab*) 10 mg PO Q4H PRN PRN Reason: PAIN Last Admin: 11/07/17 11:39 Dose: 10 mg Oxycodone/Acetaminophen (Percocet 5/325 Tab*) 1 tab PO Q4H PRN PRN Reason: PAIN - MILD Oxycodone/Acetaminophen (Percocet 5/325 Tab*) 2 tab PO Q4H PRN PRN Reason: PAIN - MODERATE Last Admin: 11/07/17 09:30 Dose: 2 tab Pharmacy Profile Note (Coumadin Daily Reminder*) 1 note FOLLOW UP 1700 [facility] Polyethylene Glycol/Electrolytes (Miralax*) 17 gm PO DAILY PRN PRN Reason: Constipation Valsartan (Diovan Tab*) 160 mg PO DAILY [facility] Last Admin: 11/07/17 12:29 Dose: 160 mg Warfarin Sodium (Coumadin Tab(*)) 6 mg PO ONCE@1700 [facility] PRN Reason: Protocol Stop: 11/07/17 17:01 Vital Signs - 8 hr 11/07/17 11/07/17 11/07/17 07:21 07:29 08:00 Temperature 97.3 F Pulse Rate 58 Respiratory 17 18 18 Rate Blood Pressure 130/66 (mmHg) O2 Sat by Pulse 96 96 Oximetry 11/07/17 11/07/17 11/07/17 09:23 09:30 09:31 Temperature Pulse Rate 61 Respiratory 18 18 Rate Blood Pressure 142/71 (mmHg) O2 Sat by Pulse Oximetry 11/07/17 11/07/17 11/07/17 11:31 11:39 11:40 Temperature 98.1 F Pulse Rate 62 Respiratory 17 20 20 Rate Blood Pressure 142/63 (mmHg) O2 Sat by Pulse 96 Oximetry 11/07/17 11/07/17 12:29 14:59 Temperature Pulse Rate Respiratory 20 20 Rate Blood Pressure (mmHg) O2 Sat by Pulse Oximetry Oxygen Devices in Use Now: None Appearance: Patient is a 62yo visibly anvious female who appears stated age and is sitting in the bed in NAD. Eyes: No Scleral Icterus, PERRLA Ears/Nose/Mouth/Throat: NL Teeth, Lips, Gums, Clear Oropharnyx, Mucous Membranes Moist Neck: NL Appearance and Movements; NL JVP, Trachea Midline Respiratory: Symmetrical Chest Expansion and Respiratory Effort, Clear to Auscultation Cardiovascular: NL Sounds; No Murmurs; No JVD, RRR, No Edema Abdominal: NL Sounds; No Tenderness; No Distention, No Hepatosplenomegaly Lymphatic: No Cervical Adenopathy Extremities: No Edema, No Clubbing, Cyanosis Skin: No Nodules or Sclerosis, - - Right knee incision covered with bulky dressing and not visualized. 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 - Patient Problems (1) Post-operative state Current Visit: Yes Status: Acute Code(s): Z98.890 - OTHER SPECIFIED POSTPROCEDURAL STATES SNOMED Code(s): 93531713 Comment: Management per Ortho. Pain uncontrolled, pain control per ortho. Had BM and urinated after cohen removal. H/H stable, monitor. PT/OT. (2) Hypertension Current Visit: Yes Status: Acute Code(s): I10 - ESSENTIAL (PRIMARY) HYPERTENSION SNOMED Code(s): 98781891 Comment: Patient has not been taking medications at home. Moderately hypertensive. Restart Valsartan which patient was previously on. Will resume amlodipine next if persistently hypertensive. Should be managed outpatient. (3) HLD (hyperlipidemia) Current Visit: Yes Status: Acute Code(s): E78.5 - HYPERLIPIDEMIA, UNSPECIFIED SNOMED Code(s): 95436535 Comment: Continue Atorvastatin. (4) Cirrhosis Current Visit: Yes Status: Acute Comment: Not symptomatic. Follow up outpatient. (5) Anxiety Current Visit: Yes Status: Acute Code(s): F41.9 - ANXIETY DISORDER, UNSPECIFIED SNOMED Code(s): 37355386 Comment: Continue Citalopram. Patient is outwardly very anxious and has not been compliant with medication. (6) DVT prophylaxis Current Visit: Yes Status: Acute Code(s): VFC2036 - SNOMED Code(s): 422826733 Comment: Lovenox to Warfarin per ortho. Daily INR. (7) Full code status Current Visit: Yes Status: Acute Code(s): Z78.9 - OTHER SPECIFIED HEALTH STATUS SNOMED Code(s): 347021491 Status and Disposition: Admitted inpatient. Disposition per Ortho.
[2017-11-07] MEDS ORDERED: Warfarin TAB(*) 6 MG PO SCH (17:00)
[2017-11-08] MEDS: oxyCODONE/Acetamin 5/325 MG* TAB PO PRN ×3 (00:30→08:37)
[2017-11-08] MEDS: Morphine TAB Extended Release (*) 30 MG TAB.ER PO SCH ×2 (00:30→12:15)
[2017-11-08] MEDS: oxyCODONE TAB* 5 MG TAB PO PRN ×2 (02:32→06:35)
[2017-11-08 06:16] LABS: Hematocrit 35 % (35-47); Hemoglobin 12.3 g/dl (12.0-16.0); Mean Platelet Volume 9.6 um3 (7.4-10.4); Platelet Count 177 10^3/ul (150-450)
[2017-11-08 06:34] LABS: INR 1.52 (0.77-1.02)
--- NOTE | 2017-11-08 08:32 | OP ---
DATE OF OPERATION: 11/06/17 - ROOM #346 DATE OF : 51 SURGEON: Serena Holguin M.D. POTATO CHIP FRIER: KATIA Arambula. Ms. Villalta did help throughout the procedure with preparation of the leg, wound retraction, manipulation of the knee, and wound closure. ANESTHESIOLOGIST: Dr. Fernandez. ANESTHESIA: Spinal. PRE-OP DIAGNOSIS: Severe end-stage degenerative osteoarthritis of the right knee joint. POST-OP DIAGNOSIS: Severe end-stage degenerative osteoarthritis of the right knee joint. OPERATIVE PROCEDURE: Right total knee arthroplasty. TOURNIQUET TIME: 46 minutes. COMPLICATIONS: None. ESTIMATED BLOOD LOSS: 200 mL. SPECIMENS: Bone and cartilage from the right knee joint sent to Pathology. HARDWARE USED: This is a cemented [employer] total knee arthroplasty hardware. Two packages of Simplex bone cement. For the femur, a size 3 narrow right posterior stabilized Legion narrow Oxinium femoral component. For the tibia, a Sammi II, a size 2 right tibial base plate. For the insert, a 9-mm posterior stabilized articular insert size 1/2, and for the patella, a 29-mm 3 peg all poly patella with 7.5 thickness. BRIEF HISTORY/INDICATIONS: Ms. Murrieta is a 62-year-old female with years of increasingly severe right knee pain. She failed conservative treatment with antiinflammatory, pain medication, intra-articular injection, and physical therapy. Due to continued pain and decreased quality of life, she elected to have right total knee arthroplasty. Her radiograph showed advanced arthritis. Informed consent was obtained from the patient. She understood the risk of surgery included, but were not limited to bleeding, infection, damage to nearby structures, continued pain, need for further surgery, intraoperative fracture, nerve palsy, hardware failure or loosening, knee stiffness, loss of motion, stroke, heart attack, blood clot, and . She wished to proceed. INTRAOPERATIVE FINDINGS: Intraoperatively, the patient was noted to have severe tricompartmental arthritis with full thickness loss of cartilage in all 3 compartments. DESCRIPTION OF PROCEDURE: Ms. Murrieta was identified in the preanesthesia unit. Her right lower extremity was marked as the correct operative side. Informed consent was signed and placed in the chart. The patient was taken to the operating room and placed under spinal anesthesia. A Lawrence catheter was placed. A tourniquet was placed on the right side. Right lower extremity was prepped and draped in the usual sterile fashion. Preop time-out was made to correctly identify the patient, side, and site. Appropriate perioperative antibiotics were given within one hour of incision. Tourniquet was inflated and total tourniquet time for this procedure was 46 minutes. A midline incision of 12 cm was made with a 10 blade. A new 10 blade was used to make a standard medial parapatellar arthrotomy. Patella was subluxed laterally. Electrocautery was used to subperiosteally elevate the soft tissue off of the superomedial tibia to the mid sagittal plane. The knee was flexed up. The anterior horn of the lateral meniscus and ACL was sharply released. A drill was used to enter the distal femur. Intramedullary distal femoral cutting guide was pinned on the distal femur. Oscillating saw was used to make the distal femoral cut. Next, the external rotation guide was pinned on the distal femur. The distal femur was sized to a size 3. Size 3 multi-cutting jig was pinned on the distal femur. Oscillating saw was used to make the 4 chamfer cuts. The PCL was completely released at this point. The tibia was subluxed anteriorly. Extramedullary tibial cutting guide was pinned on the proximal tibia. The oscillating saw was used to make the proximal tibial cut perpendicular to the mechanical axis of the tibia. The bone was carefully removed. The knee was brought out into full extension. The spacer block had excellent fit with the knee in full extension. Medial and lateral ligaments were well balanced. Flexion and extension gap was well balanced. The knee was flexed up. Lamina leather goods sales representative was placed both medially and laterally. Any remaining meniscus was carefully removed using electrocautery. Curved osteotome was used to remove any posterior osteophytes. Tibial tray and drop rebecca were placed to once again confirm a satisfactory tibial cut; this was confirmed. A size 3 right femoral trial was impacted on to the distal femur; this had excellent fit. The box for the posterior stabilized implant was prepared using a reamer and box cut osteotome. A size 3 tibial tray trial with a 9-mm insert trial was placed and the knee was taken through a range of motion. The knee had full extension to 130 degrees of flexion with good patellofemoral tracking. The patella was everted. 7 mm of patellar bone and cartilage was carefully removed using an oscillating saw. The patella was sized to a size 29. Three peg holes were drilled through the size 29 guide. A trial 29 patella with 7.5 thickness was placed and the knee was taken through a range of motion. There was good patellofemoral tracking. All trials were carefully removed. Tibia was subluxed anteriorly and sized to a size 2. Proximal tibia was prepared using a size 2 keel punch. All bony cut surfaces were copiously irrigated with sterile saline and dried. Final implants were cemented into place, starting with the tibia and followed by the femur and last the patella. A 9-mm insert trial was placed where the knee was brought into full extension. Tourniquet was turned down at 46 minutes. The knee was copiously irrigated with sterile saline. Electrocautery was used to obtain meticulous hemostasis. Once the cement had fully cured, the insert trial was removed. Any excess cement was removed from around the hardware and capsule. Final insert chosen was a 9-mm posterior stabilized articular insert size 1/2. This was locked into position on the tibial tray. Stability of the insert was checked and rechecked and noted to be stable. The knee was once again copiously irrigated with sterile saline. Extensor mechanism was closed using interrupted #1 Vicryl. The rest of the incision was closed in a layered-fashion using 0 and 2-0 Vicryl. Skin was closed using running 3-0 nylon suture. Sterile Xeroform, 4x4s, and Webril were used to cover the incision. Godfrey wrap and cold packs were placed over this. The patient's anesthesia was reversed without difficulty. She was taken to the PACU in stable condition. Intended weightbearing will be weightbearing as tolerated. Intended DVT prophylaxis will be Coumadin with a Lovenox bridge. [id number]/[facility] #: [id number] [facility]OSPITALBrenda
[2017-11-08] MEDS: Magnesium Hydroxide LIQ* 30 ML UDC PO SCH (08:33)
[2017-11-08] MEDS: Docusate CAP* 100 MG PO SCH (08:33)
[2017-11-08] MEDS: Atorvastatin* 40 MG TAB PO SCH (08:33)
[2017-11-08] MEDS ORDERED: Omeprazole CAP* 20 MG PO SCH (09:00)
[2017-11-08] MEDS ORDERED: Citalopram TAB* 20 MG PO SCH (09:00)
--- NOTE | 2017-11-08 10:31 | PN ---
Progress Note - Progress Note Date of Service: 11/08/17 SOAP: Subjective: []Patient seen at bedside. She felt dizzy with change of position at physical therapy, which has resolved with rest. Pain rated 3/10. Denies continued dizziness, lightheadedness, chest pain, shortness of breath. Objective: [] Laboratory Last Values Hgb 12.3 g/dl (12.0-16.0) 11/08/17 05:44 Hct 35 % (35-47) 11/08/17 05:44 Plt Count 177 10^3/ul (150-450) 11/08/17 05:44 MPV 9.6 um3 (7.4-10.4) 11/08/17 05:44 INR (Anticoag Therapy) 1.52 (0.77-1.02) H 11/08/17 05:44 Sodium 136 mmol/L (139-145) L 11/07/17 05:45 Potassium 4.5 mmol/L (3.5-5.0) 11/07/17 05:45 Chloride 103 mmol/L (101-111) 11/07/17 05:45 Carbon Dioxide 29 mmol/L (22-32) 11/07/17 05:45 Anion Gap 4 mmol/L (2-11) 11/07/17 05:45 BUN 18 mg/dL (6-24) 11/07/17 05:45 Creatinine 0.72 mg/dL (0.51-0.95) 11/07/17 05:45 Est GFR ( Amer) 104.9 (>60) 11/07/17 05:45 Est GFR (Non-Af Amer) 81.6 (>60) 11/07/17 05:45 BUN/Creatinine Ratio 25.0 (8-20) H 11/07/17 05:45 Glucose 123 mg/dL (70-100) H 11/07/17 05:45 Calcium 9.2 mg/dL (8.6-10.3) 11/07/17 05:45 Vital Signs Temp 97.2 F 11/08/17 07:48 Pulse 58 11/08/17 07:31 Resp 20 11/08/17 08:37 BP 104/68 11/08/17 07:48 Pulse Ox 99 11/08/17 08:00 Intake & Output 11/07/17 11/08/17 11/08/17 18:59 06:59 18:59 Intake Total 575 480 720 Output Total 1500 1300 Balance -925 -820 720 Intake: IV Fluids 50 NS (0.9%) 50 Oral 525 480 720 Output: Urine 1500 1300 Other: Estimated Void Small # Voids 1 General: Well appearing, NAD. Patient falling asleep during our conversation RLE: Dressing changed by Dr Holguin this morning. Remains Clean, dry, intact. No erythema above or below dressing. DF/PF intact. DP 2+ . Sensation intact distally. BL LE: Calves supple and nontender without erythema, edema or palpable cords. Assessment: []POD 2 sp right total knee arthroplasty 11/07/17 Dr Holguin Plan: []WBAT PT/OT Lovenox, coumadin 4 mg Has been receiving long acting morphine, oxycodone, percocet, cyclobenzaprine for pain control. Continue with long acting morphine, percocet. Stop oxycodone and cyclobenzaprine. DC home today if feeling well this afternoon
[2017-11-08] MEDS: Valsartan TAB* 160 MG PO SCH (12:15)
[2017-11-08] MEDS: Enoxaparin(*) 30 MG/0.3 ML SYR SUBCUT SCH (12:16)
[2017-11-08 13:23] VITALS: BP 115/60
[2017-11-08] MEDS ORDERED: Warfarin TAB(*) 4 MG PO ONE (17:00)
--- NOTE | 2017-11-09 07:39 | DS ---
DISCHARGE SUMMARY: DATE OF ADMISSION: 11/06/17 DATE OF DISCHARGE: 11/08/17 DATE OF OPERATION: 11/06/17 SURGEON: Dr. Serena Holguin.* (DICTATED BY KATIA BAILEY) STRATEGIC PARTNERSHIP REPRESENTATIVE: KATAI Arambula PREOPERATIVE DIAGNOSIS: Severe end-stage degenerative osteoarthritis of the right knee joint. OPERATIVE PROCEDURE: Right total knee arthroplasty. HISTORY: Ms. Murrieta is a 62-year-old female with years of increasingly severe right knee pain. She has failed conservative management and elected to undergo a right total knee arthroplasty. HOSPITAL COURSE: Ms. Murrieta was admitted to [facility] on . She underwent a right total knee arthroplasty without complication. She recovered briefly in the PACU and then was transferred to the short stay surgical unit in stable condition. She was also seen by our hospitalist service during her stay. On postop day 1, she was well appearing, in no acute distress. Right lower extremity dressing was dry and intact. Small amount of bloody drainage anteriorly. No erythema above or below the dressing. Dorsiflexion and plantar flexion intact. Able to flex and extend at the knee. DP pulse 2+. Sensation intact distally. Hospital team helped to manage hypertension, hyperlipidemia, cirrhosis, anxiety while she was in-house. The patient did not have an accurate med list to provide to us. She also reports that she does not take her medications at home as prescribed to her. Postop day 2, hemoglobin 12.3, hematocrit 35. INR 1.52. The patient is well appearing , in no acute distress though she was falling asleep during our conversation. She was alert and oriented x3. Dressing changed by Dr. Holguin this morning, remaining clean, dry, and intact. No erythema above or below the dressing. Dorsiflexion and plantar flexion are intact. 2+ dorsalis pedis pulse. The patient became mildly dizzy while working with physical therapy in the morning, but during her afternoon session, she did quite well without any dizziness. Vital signs include temperature 97.7, heart rate 71, oxygen saturation 93%, blood pressure 120/61. The patient was deemed to be medically and orthopedically stable for discharge home. DISCHARGE MEDICATIONS: Include: The patient will discontinue her amlodipine, carvedilol, hydrochlorothiazide. For blood pressure, she will be on valsartan 160 mg daily. She will resume her citalopram 20 mg daily. She will continue Ventolin 1 puff inhaled q.4 hours p.r.n. Pain medications at discharge include: Morphine sulfate 30 mg q.12 hours p.r.n. as well as Percocet 5/325 one to two tabs every 4 to 6 hours p.r.n., max daily dose of 10. The patient knows that both of these narcotic pain medications should be limited as much as she is able. Also, Colace 100 mg p.o. b.i.d. p.r.n. and warfarin 2 mg tab, 1 to 3 tabs daily scheduled dose determined by INR. DISCHARGE INSTRUCTIONS: Weightbearing as tolerated. Coumadin dosing will be 4 mg on 11/08/17, 2 mg daily from 11/09/17 to 11/11/17. Recheck INR on 11/12/17. Pain control: Percocet 5/325 one to two tabs every 4 to 6 hours as needed for pain, max 10 tabs per day; morphine sulfate 30 mg every 12 hours as needed for pain. Blood pressure medication: Stop carvedilol, amlodipine, and hydrochlorothiazide, you will take valsartan 160 mg daily. Please see your PCP within 1 week for medication management. KATIA BAILEY [id number]/[facility] #: [id number] MTDD
== END 2017-11-08 15:25 | disposition home health service (06) | DRG 470 ==
LOC: AA 11:58 → SSU 18:00
PROVIDERS: ADMIT Orthopaedic Surgery Adult Reconstructive Orthopaedic Surgery; ATTEND Orthopaedic Surgery Adult Reconstructive Orthopaedic Surgery
PROC: 0SRC069 Replacement of Right Knee Joint with Oxidized Zirconium on Polyethylene Synthetic Substitute, Cemented, Open Approach (ICD-10-PCS; principal; 2017-11-06 14:00)
DX: M17.11 Unilateral primary osteoarthritis, right knee (principal); I10 Essential (primary) hypertension; E78.5 Hyperlipidemia, unspecified; K74.60 Unspecified cirrhosis of liver; F41.9 Anxiety disorder, unspecified; R42 Dizziness and giddiness; K21.9 Gastro-esophageal reflux disease without esophagitis; F17.210 Nicotine dependence, cigarettes, uncomplicated; F12.90 Cannabis use, unspecified, uncomplicated; B19.20 Unspecified viral hepatitis C without hepatic coma; R73.03 Prediabetes; M10.9 Gout, unspecified; R91.1 Solitary pulmonary nodule; E66.9 Obesity, unspecified; I65.29 Occlusion and stenosis of unspecified carotid artery; M25.761 Osteophyte, right knee; Z79.01 Long term (current) use of anticoagulants; Z90.710 Acquired absence of both cervix and uterus; Z88.5 Allergy status to narcotic agent; Z82.49 Family history of ischemic heart disease and other diseases of the circulatory system; Z82.5 Family history of asthma and other chronic lower respiratory diseases; Z72.89 Other problems related to lifestyle; Z98.42 Cataract extraction status, left eye; Z98.41 Cataract extraction status, right eye; Z88.8 Allergy status to other drugs, medicaments and biological substances; Z80.1 Family history of malignant neoplasm of trachea, bronchus and lung; Z80.0 Family history of malignant neoplasm of digestive organs; Z68.36 Body mass index [BMI] 36.0-36.9, adult
CPT/HCPCS: 36415; 80048; 85014; 85018; 85049; 85610; 88305; 88311; A9270-GY; C1776; G8978-GP-CJ; G8979-GP-CI; G8987-GO-CJ; G8988-GO-CI; J0690; J1100; J1650; J2250; J2270; J2405; J2704; J2795; J3010

== ENCOUNTER 2019-04-15 07:01 | Emergency (ER) | payer MEDICARE, MEDICAID ==
--- OUTSIDE RECORDS SUMMARY | 2019-04-15 07:17 | XMS REPORT | Continuity of Care Document ---
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 Onset: 10/10/2017 Arthroplasty of knee Serena Holguin M.D. Onset: 11/12/2017 Essential hypertension Real Mata NP Onset: 03/24/2018 Hyperlipidemia Real Mata NP Onset: 03/24/2018 Social History Type Date Description Comments Sex Unknown ETOH Use consumes 2-3 glasses of wine per week Tobacco Use Start: Unknown Light tobacco smoker (10 or fewer cigarettes/day) Recreational Drug Use Denies Drug Use Smoking Status Reviewed: 03/28/19 Light tobacco smoker (10 or fewer cigarettes/day) Exercise Type/Frequency Exercises regularly Allergies, Adverse Reactions, Alerts Active Allergies Reaction Severity Comments Date Darvocet Urticaria 01/08/2014 Godfrey Inhibitors Cough 08/07/2018 Medications Active Medications SIG Qnty Indications Ordering Provider Date Losartan Potassium take 1 tablet by 90tabs I10 Real Mata NP 08/07/2018 25mg mouth once daily Tablets Amlodipine Besylate take 1 tablet by 30tabs Real Mata NP 03/21/2018 mouth once daily 10mg Tablets Tylenol Extra 1-2 tabs by Unknown Strength mouth every 6 500mg Tablets hours as needed Hemp Joint Pain Unknown Oxycodone HCL 1 tabs by mouth Unknown 5mg every 8-12 hours Tablets as needed Medications Administered in Office Medication SIG Qnty Indications Ordering Provider Date PPD Real Mata NP 08/07/2018 Injection Depomedrol 80MG Chava Keller M.D. 01/10/2011 Injection Immunizations Description No Information Available Vital Signs Date Vital Result Comment 03/28/2019 9:12am Height 60 inches 5'0" Weight 176.00 lb Heart Rate 84 /min BP Systolic 144 mmHg BP Diastolic 70 mmHg BMI (Body Mass Index) 34.4 kg/m2 03/25/2019 9:44am Height 60 inches 5'0" Weight 176.12 lb Heart Rate 81 /min BP Systolic 162 mmHg BP Diastolic 87 mmHg BP Systolic Recheck 150 mmHg BP Diastolic Recheck 90 mmHg Body Temperature 97.6 F O2 % BldC Oximetry 96 % BMI (Body Mass Index) 34.4 kg/m2 Results Description No Information Available Procedures Date Code Description Status 07/29/2018 88700504 Colonoscopy Completed Medical Devices Description No Information Available Encounters Description No Information Available Assessments Date Code Description Provider 03/28/2019 M19.072 Primary osteoarthritis, left ankle and foot Teddy Felix MD 03/28/2019 M19.071 Primary osteoarthritis, right ankle and foot Teddy Felix MD 03/25/2019 I10 Essential (primary) hypertension Real Mata NP 03/25/2019 M79.673 Pain in unspecified foot Rael Mata NP 03/25/2019 Z13.220 Encounter for screening for lipoid disorders Real Mata NP Plan of Treatment Future Appointment(s):05/06/2019 9:40 am - Real Mata NP at [facility] Internal Medicine - [facility]03/28/2019 - Teddy Felix MDM19.072 Primary osteoarthritis, left ankle and footReferral: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,Follow up:Follow Up: As [id number] Primary osteoarthritis, right ankle and foot Functional Status Description No Information Available Mental Status Description No Information Available Referrals Refer to Reason for Referral Status 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 Date 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 [facility] 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
--- OUTSIDE RECORDS SUMMARY | 2019-04-15 07:17 | XMS REPORT | Continuity of Care Document ---
:1955 External Reference #:[id number] Author Name Real Mata NP (transmitted by agent of provider Shelby Bennett) Address [address], [place] [address] Care Team Providers Name Role Phone Kartik Choe MD - Family Care Team Information [employer] [facility] Kristen Mcgarry MD - Internal Care Team Information [employer] [phone] Medicine Problems Active Problems Provider Date Localized, [...] Use Denies Drug Use Smoking Status Reviewed: 03/25/19 Light tobacco smoker (10 or fewer cigarettes/day) [...] Available Vital Signs Date Vital Result Comment 03/25/2019 9:44am Height 60 inches 5'0" Weight 176.12 lb Heart Rate 81 /min BP Systolic 162 mmHg BP Diastolic 87 mmHg BP Systolic Recheck 150 mmHg BP Diastolic Recheck 90 mmHg Body Temperature 97.6 F O2 % BldC Oximetry 96 % BMI (Body Mass Index) 34.4 kg/m2 08/07/2018 10:52am Height 60 inches 5'0" Weight 175.00 lb Heart Rate 80 /min BP Systolic 145 mmHg BP Diastolic 88 mmHg Body Temperature 98.0 F O2 % BldC Oximetry 96 % BMI (Body Mass Index) 34.2 kg/m2 Results Description No Information Available Procedures Date Code Description Status 07/29/2018 69927516 Colonoscopy Completed Medical Devices Description No Information Available Encounters Description No Information Available Assessments Date Code Description Provider 03/25/2019 I10 Essential (primary) hypertension Real Mata NP 03/25/2019 M79.673 Pain in unspecified foot Real Mata NP 03/25/2019 Z13.220 Encounter for screening for lipoid disorders Real Mata NP Plan of Treatment Future Appointment(s):05/06/2019 9:40 am - Real Mata NP at [facility] Internal Medicine - [facility]03/25/2019 - Real Mata NPI10 Essential (primary) hypertensionComments:Your blood pressure is elevated today. It is important to take your medication daily.Try to check your blood pressure at least once weekly and record those readings. Call with the readings in a month.If consistently running greater than 135/85 (either number) please call.Follow up: 6 hdpykA83.673 Pain in unspecified footComments:I have ordered the xrays of your feet. I will see what tests Dr. Upton did prior to ordering furthertests.Referral:Teddy Felix MD, Surgery,OrthopedicFollow up:TAD: Dr. AguilarzZ13.220 Encounter for screening for lipoid disorders Functional Status Description No Information Available Mental Status Description No Information Available Referrals Refer to Reason for Referral Status Appt Date Teddy Felix [place] [address] [phone]
--- OUTSIDE RECORDS SUMMARY | 2019-04-15 07:17 | XMS REPORT | Continuity of Care Document ---
:1955 External Reference #:[id number] Author Name Real Upton DO, MPH Address [address] [place] [address], [address] [place] [address] Care Team Providers Name Role Phone Kristen Mcgarry M.D. - Internal Care Team Information Optician Apprentice [phone] Medicine Real Mata NP, - Internal Medicine Care Team Information Optician Apprentice [phone] Problems Description No Information Available Social History Type Date Description Comments Sex Unknown ETOH Use Occasionally consumes alcohol Tobacco Use Start: Unknown Patient is a current smoker, smokes every day Recreational Drug Use Denies Drug Use Smoking Status Reviewed: 03/20/19 Patient is a current smoker, smokes every day Allergies, Adverse Reactions, Alerts Description No Known Drug Allergies Medications Active Medications SIG Qnty Indications Ordering Provider Date Lyrica si po every 12 60caps Real Upton DO, 03/20/2019 50mg Capsules hours as directed MPH chronic pain patient Oxycodone HCL si by mouth 75tabs Real Upton DO, 08/19/2018 5mg every 8- 12 hours MPH Tablets as directed chronic pain patient Amlodipine Besylate 1 by mouth every Unknown day 10mg Tablets Losartan Potassium 60tabs Unknown 25mg Tablets CBD Cream And Oil Unknown Immunizations Description No Information Available Vital Signs Date Vital Result Comment 03/20/2019 11:13am BP Systolic 144 mmHg BP Diastolic 82 mmHg Heart Rate 84 /min Respiratory Rate 20 /min Height 60 inches 5'0" Weight 187.00 lb Pain Level 8 Pain at this time. Pain Level With Medicine 8 on average with meds Pain Level Without Medicine 9 without meds BMI (Body Mass Index) 36.5 kg/m2 02/17/2019 11:55am BP Systolic 128 mmHg BP Diastolic 78 mmHg Heart Rate 74 /min Respiratory Rate 20 /min Height 60 inches 5'0" Weight 189.00 lb Pain Level 6 Pain at this time. 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 Office Visit 01/20/2019 11:15a Main Office as Real Upton G89.29 Other chronic Of 08/02/13 DO, MPH pain M54.5 Low back pain M99.03 Segmental and somatic dysfunction of lumbar region M54.16 Radiculopathy, lumbar region 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 Office Visit 12/20/2018 11:30a Main Office as Real Upton G89.29 Other chronic Of 08/02/13 DO, MPH pain M54.5 Low back pain M54.16 Radiculopathy, lumbar region Z79.891 [facility] (current) use of opiate analgesic Office Visit 12/05/2018 11:15a Main Office as Real Upton G89.29 Other chronic Of 08/02/13 DO, MPH pain M54.5 Low back pain M54.16 Radiculopathy, lumbar region M79.604 Pain in right leg M79.605 Pain in left leg 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 Office Visit 11/21/2018 4:00p Main Office as Real Upton G89.29 Other chronic Of 08/02/13 DO, MPH pain M54.5 Low back pain M54.16 Radiculopathy, lumbar region M79.604 Pain in right leg M79.605 Pain in left leg 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 Office Visit 10/04/2018 11:15a Main Office as UptonReal paulson, G89.29 Other chronic Of 08/02/13 DO, MPH pain M54.5 Low back pain M54.16 Radiculopathy, lumbar region M79.604 Pain in right leg M79.605 Pain in left leg M25.532 Pain in left wrist M79.632 Pain in left forearm 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 Assessments Date Code Description Provider 03/20/2019 G89.29 Other chronic pain Upton, Real, DO, MPH 03/20/2019 M54.16 Radiculopathy, lumbar region Upton, Real, DO, MPH 03/20/2019 M54.5 Low back pain Upton, Real, DO, MPH 03/20/2019 Z79.891 [facility] (current) use of opiate analgesic Upton, Real , DO, MPH 03/20/2019 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-system degeneration of the autonomic Upton, Real, DO , MPH nervous system 02/17/2019 G89.29 Other chronic pain Upton, Real, DO, MPH 02/17/2019 M54.16 Radiculopathy, lumbar region Upton, Real, DO, MPH 02/17/2019 M54.5 Low back pain Upton, Real, DO, MPH 02/17/2019 Z79.891 [facility] (current) use of opiate analgesic Upton, Real , DO, MPH 01/20/2019 G89.29 Other chronic pain Upton, Real, DO, MPH 01/20/2019 M54.5 Low back pain Upton, Real, DO, MPH 01/20/2019 M99.03 Segmental and somatic dysfunction of lumbar Upton, Real, DO, MPH region 01/20/2019 M54.16 Radiculopathy, lumbar region Upton, Real, DO, MPH 01/20/2019 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 Upton, Real , DO, MPH 12/20/2018 G89.29 Other chronic pain Upton, Real, DO, MPH 12/20/2018 M54.5 Low back pain Upton, Real, DO, MPH 12/20/2018 M54.16 Radiculopathy, lumbar region Upton, Real, DO, MPH 12/20/2018 Z79.891 [facility] (current) use of opiate analgesic Upton, Real , DO, MPH 12/05/2018 G89.29 Other chronic pain Upton, Real, DO, MPH 12/05/2018 M54.5 Low back pain Upton, Real, DO, MPH 12/05/2018 M54.16 Radiculopathy, lumbar region Upton, Real, DO, MPH 12/05/2018 M79.604 Pain in right leg Upton, Real, DO, MPH 12/05/2018 M79.605 Pain in left leg Upton, Real, DO, MPH 12/05/2018 Z79.891 [facility] (current) use of opiate analgesic Upton, Real , DO, MPH 11/21/2018 G89.29 Other chronic pain Upton, Real, DO, MPH 11/21/2018 M54.5 Low back pain Upton, Real, DO, MPH 11/21/2018 M54.16 Radiculopathy, lumbar region Upton, Real, DO, MPH 11/21/2018 M79.604 Pain in right leg Upton, Real, DO, MPH 11/21/2018 M79.605 Pain in left leg Upton, Real, DO, MPH 11/21/2018 Z79.891 [facility] (current) use of opiate analgesic Upton, Real , DO, MPH 10/04/2018 G89.29 Other chronic pain Upton, Real, DO, MPH 10/04/2018 M54.5 Low back pain Upton, Real, DO, MPH 10/04/2018 M54.16 Radiculopathy, lumbar region Upton, Real, DO, MPH 10/04/2018 M79.604 Pain in right leg Upton, Real, DO, MPH 10/04/2018 M79.605 Pain in left leg Upton, Real, DO, MPH 10/04/2018 M25.532 Pain in left wrist Upton, Real, DO, MPH 10/04/2018 M79.632 Pain in left forearm Real Upton DO MPH 10/04/2018 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 Symptoms and complaints discussed and reviewed today. No significant changes in physical findings. Continue current medical pain management.M54.16 Radiculopathy, lumbar regionComments:Chronic. Symptoms and complaints discussed and reviewed today. No changes in physical findings; patient is stable on current medical therapy.M54.5 Low back painComments: Chronic. Symptoms and complaints discussed and reviewed today.No changes in physical findings. Patient is stable and comfortable when current medical therapy is rendered.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New Labs: Urine Drug Screen, Ordered: 03/20/19Comments:Urine drug screen sample taken today to monitor opiate use and to monitor use of illicit substances.Will discuss results at next appointment.The following tests were ordered:6 AM, AMPH , HANNAH, KARINE, BUP, CARIS, COCM, COT, ETG, FENT, MCSHSG, OPI, OXY, PCP, TAPEN, XTSY, ZOLP. A urine drug test (UDT) was ordered for this patient and collected on site today. Creatinine has been ordered as well for specimen validity, not for kidney function. Preliminary UDT results are not final and should not be used to determine patient care or plan of treatment. Initially a qualitative immunoassay screen will be done. Any inconsistent or positive findings will be further tested with a more comprehensive quantitative confirmation LCMS study. It is part of the treatment process of prescribing controlled substances and is considered standard of care.G90.3 Multi-system degeneration of the autonomic nervous systemNew Orders:Sudomotor Test, Ordered: 03/20/19Comments:Sudomotor testing ordered to determine the effect, if any, of chronic illness and pain on small nerve fibers and/or autonomic nervous system function. Future testing will help to monitor the effects ofchronic illness, pain and subsequent treatments on the autonomic nervous system. If proper diagnosis and monitoring of ANS and/or small pain fiber problems is not appropriately addressed, adequate pain management may not be achieved.AllNew Medication:Lyrica 50 mg - si po every 12 hours as directed chronic pain patientComments:Continue current medical pain management; injection therapy, osteopathic manipulation, PT / modalities, and consults as needed to manage chronic pain.Non - opioid pain management discussed and optionsdiscussed.Side effects discussed; anticipatory guidance given. Patient clearly understand and agree with all medical treatments and suggestions. All medicines prescribed are adequate and appropriate for this patient's complaint of pain, medical history, physical, and personal goals.Goals of Treatment are to provide adequate and appropriate multidisciplinary medical pain management to increase/ maintain patient's quality of life and functionality while maintaining satisfactory side effect profile andminimizing half-way end-organ damage. Importance of regular nutrition throughout the day discussed.Activity as toleratedContinue with PCP Functional Status Description No Information Available Mental Status Description No Information Available Referrals Description No Information Available
--- OUTSIDE RECORDS SUMMARY | 2019-04-15 07:17 | XMS REPORT | Continuity of Care Document ---
:1955 External Reference #:[id number] Author Name Real Upton DO, MPH Address [address] [place] [address], [address] [place] [address] Care Team Providers Name Role Phone Kristen Mcgarry M.D. - Internal Care Team Information Director Of Billing Medicine Real Mata NP, - Internal Medicine Care Team Information Director Of Billing Problems Description No Information Available Social History Type Date Description Comments Sex Unknown ETOH Use Occasionally consumes alcohol Tobacco Use Start: Unknown Patient is a current smoker, smokes every day Recreational Drug Use Denies Drug Use Smoking Status Reviewed: 01/20/19 Patient is a current smoker, smokes every day Allergies, Adverse Reactions, Alerts Description No Known Drug Allergies Medications Active Medications SIG Qnty Indications Ordering Provider Date Oxycodone HCL si by mouth 75tabs Real Upton DO, 08/19/2018 5mg every 8- 12 hours MPH Tablets as directed chronic pain patient Amlodipine Besylate 1 by mouth every Unknown day 10mg Tablets Pantoprazole Sodium 1 by mouth every Unknown day 40mg Tablets DR Rudd Description No Information Available Vital Signs Date Vital Result Comment 02/17/2019 11:55am BP Systolic 128 mmHg BP Diastolic 78 mmHg Heart Rate 74 /min Respiratory Rate 20 /min Height 60 inches 5'0" Weight 189.00 lb Pain Level 6 Pain at this time. Pain Level With Medicine 5 on average with meds Pain Level Without Medicine 9 without meds BMI (Body Mass Index) 36.9 kg/m2 01/20/2019 11:22am BP Systolic 122 mmHg BP Diastolic 74 mmHg Heart Rate 78 /min Respiratory Rate 20 /min Height 60 inches 5'0" Weight 189.00 lb Pain Level 6 Pain at this time. Pain Level With Medicine 5 on average with meds Pain Level Without Medicine 9 without meds BMI (Body Mass Index) 36.9 kg/m2 Results Description No Information Available Procedures Date Code Description Status 01/20/2019 35468 Omt 1-2 Body Regions Completed Medical Devices Description No Information Available Encounters Type Date Location Provider Dx Diagnosis Office Visit 01/20/2019 Main Office as Of Real Upton DO G89.29 Other chronic pain 11:15a 08/02/13 MPH M54.5 Low back pain M99.03 Segmental and somatic dysfunction of lumbar region M54.16 Radiculopathy, lumbar region Z79.891 [facility] (current) use of opiate analgesic Office Visit 12/20/2018 11:30a Main Office as Real Upton G89.29 Other chronic Of 08/02/13 DO, MPH pain M54.5 Low back pain M54.16 Radiculopathy, lumbar region Z79.891 [facility] (current) use of opiate analgesic Office Visit 12/05/2018 11:15a Main Office as Real Upton G89.29 Other chronic Of 08/02/13 DO, MPH pain M54.5 Low back pain M54.16 Radiculopathy, lumbar region M79.604 Pain in right leg M79.605 Pain in left leg Z79.891 [facility] (current) use of opiate analgesic Office Visit 11/21/2018 4:00p Main Office as Real Upton G89.29 Other chronic Of 08/02/13 DO, MPH pain M54.5 Low back pain M54.16 Radiculopathy, lumbar region M79.604 Pain in right leg M79.605 Pain in left leg Z79.891 [facility] (current) use of opiate analgesic Office Visit 10/04/2018 11:15a Main Office as Real Upton G89.29 Other chronic Of 08/02/13 DO, MPH pain M54.5 Low back pain M54.16 Radiculopathy, lumbar region M79.604 Pain in right leg M79.605 Pain in left leg M25.532 Pain in left wrist M79.632 Pain in left forearm 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 Office Visit 09/02/2018 10:45a Main Office as Upton, Real, G89.29 Other chronic Of 08/02/13 DO, MPH pain M54.5 Low back pain M54.16 Radiculopathy, lumbar region M79.604 Pain in right leg M79.605 Pain in left leg 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 Assessments Date Code Description Provider 02/17/2019 G89.29 Other chronic pain Upton, Real, DO, MPH 02/17/2019 M54.16 Radiculopathy, lumbar region Upton, Real, DO, MPH 02/17/2019 M54.5 Low back pain Upton, Real, DO, MPH 02/17/2019 Z79.891 [facility] (current) use of opiate analgesic Upton, Real , DO, MPH 01/20/2019 G89.29 Other chronic pain Upton, Real, DO, MPH 01/20/2019 M54.5 Low back pain Upton, Real, DO, MPH 01/20/2019 M99.03 Segmental and somatic dysfunction of lumbar Upton, Real, DO, MPH region 01/20/2019 M54.16 Radiculopathy, lumbar region Upton, Real, DO, MPH 01/20/2019 Z79.891 [facility] (current) use of opiate analgesic Upton, Real , DO, MPH 12/20/2018 G89.29 Other chronic pain Upton, Real, DO, MPH 12/20/2018 M54.5 Low back pain Upton, Real, DO, MPH 12/20/2018 M54.16 Radiculopathy, lumbar region Upton, Real, DO, MPH 12/20/2018 Z79.891 [facility] (current) use of opiate analgesic Upton, Real , DO, MPH 12/05/2018 G89.29 Other chronic pain Upton, Real, DO, MPH 12/05/2018 M54.5 Low back pain Upton, Real, DO, MPH 12/05/2018 M54.16 Radiculopathy, lumbar region Upton, Real, DO, MPH 12/05/2018 M79.604 Pain in right leg Upton, Real, DO, MPH 12/05/2018 M79.605 Pain in left leg Upton, Real, DO, MPH 12/05/2018 Z79.891 [facility] (current) use of opiate analgesic Upton, Real , DO, MPH 11/21/2018 G89.29 Other chronic pain Upton, Real, DO, MPH 11/21/2018 M54.5 Low back pain Upton, Real, DO, MPH 11/21/2018 M54.16 Radiculopathy, lumbar region Upton, Real, DO, MPH 11/21/2018 M79.604 Pain in right leg Upton, Real, DO, MPH 11/21/2018 M79.605 Pain in left leg Upton, Real, DO, MPH 11/21/2018 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 Upton, [...] MPH 10/04/2018 M79.632 Pain in left forearm Upton, Real, DO, MPH 10/04/2018 Z79.891 [facility] (current) use of opiate analgesic Upton, Real , DO, MPH 09/02/2018 G89.29 Other chronic pain Upton, Real, DO, MPH 09/02/2018 M54.5 Low back pain Upton, Real, DO, MPH 09/02/2018 M54.16 Radiculopathy, lumbar region Upton, Real, DO, MPH 09/02/2018 M79.604 Pain in right leg Upton, Real, DO, MPH 09/02/2018 M79.605 Pain in left leg Real Upton DO MPH 09/02/2018 Z79.891 [facility] (current) use of opiate analgesic Real Upton DO, MPH Plan of Treatment Future Appointment(s):03/20/2019 11:00 am - Real Upton DO, MPH at Main Office as Of 08/02/1407 - Real Upton DO, MPHG89.29 Other chronic [...] comfortable when current medical therapy is rendered.Z79.891 [facility] (current) use of opiate analgesicNew Labs: Urine Drug Screen, Ordered: 02/17/19Comments:Urine drug screen sample taken today to monitor [...] controlled substances and is considered standard of care.AllComments:Continue current medical pain management; injection therapy, osteopathic [...] while maintaining satisfactory side effect profile andminimizing residential end-organ damage. Importance of regular nutrition throughout the day discussed.Activity as toleratedContinue with PCP Functional Status Description No Information Available Mental Status Description No Information Available Referrals Description No Information Available
[2019-04-15 07:21] VITALS: BP 151/77
--- NOTE | 2019-04-15 08:09 | UC ---
Respiratory Complaint HPI - HPI Summary HPI Summary: cough / chest congestion x 5 days cough is harsh, non-productive, worse with deep breathing , better with rest nasal congestion , bilateral ear pain , sore throat, no fever, + chills, - History of Current Complaint Chief Complaint: UCGeneralIllness Stated Complaint: SORE THROAT COUGH HEADACHE LEFT EAR Time Seen by Provider: 04/15/19 07:26 Hx Obtained From: Patient Hx Last Menstrual Period: n/a Onset/Duration: Gradual Onset, Lasting Days - 5, Still Present Timing: Constant Severity Initially: Moderate Severity Currently: Moderate Pain Intensity: 8 Aggravating Factors: Exertion, Deep Breaths Alleviating Factors: Other - rest, Associated Signs And Symptoms: Positive: URI, Nasal Congestion. Negative: Dyspnea, Fever, Chills, Pleuritic Chest Pain, Wheezing - Allergies/Home Medications Allergies/Adverse Reactions: Allergies Allergy/AdvReac Type Severity Reaction Status Date / Time propoxyphene Allergy Itching Verified 04/15/19 07:21 [From [facility]] Adhesive Tape AdvReac Rash And Verified 04/15/19 07:21 Itching Home Medications: Home Medications Losartan TAB* [Cozaar TAB*] 25 mg PO DAILY 04/15/19 [History Confirmed 04/15/19] oxyCODONE TAB* [Roxycodone TAB 5 mg*] 5 mg PO Q4H PRN 04/15/19 [History Confirmed 04/15/19] PMH/Surg Hx/FS Hx/Imm Hx Cardiovascular History: Hypertension Other History Of: Hepatitis C - Surgical History Surgical History: Yes Surgery Procedure, Year, and Place: hysterectomy, right knee surgery 08/30/15- REPLACEMENT. CATARACTS BILATERAL EYES. APPENDIX - Family History Known Family History: Positive: Cardiac Disease, Hypertension Negative: Blood Disorder - denies - Social History Alcohol Use: Rare Alcohol Amount: wine on Fridays Substance Use Type: None Substance Use Comment - Amount & Last Used: hasn't smoked in a couple weeks Smoking Status (MU): Light Every Day Tobacco Smoker Type: Cigarettes Amount Used/How Often: 8 cigarettes daily Length of Time of Smoking/Using Tobacco: On and Off Since Age 22 Have You Smoked in the Last Year: Yes Household Exposure Type: Cigarettes - Immunization History Most Recent Influenza Vaccination: Not the 2017/2018 Season Most Recent Pneumonia Vaccination: none Review of Systems All Other Systems Reviewed And Are Negative: Yes Constitutional: Positive: Chills, Fatigue Skin: Positive: Negative Eyes: Positive: Negative ENT: Positive: Sore Throat, Ear Ache, Nasal Discharge Respiratory: Positive: Cough Cardiovascular: Positive: Negative Is Patient Immunocompromised?: No Physical Exam Triage Information Reviewed: Yes Appearance: Well-Appearing, No Pain Distress, Well-Nourished Vital Signs: Initial Vital Signs Temp 97.9 F 04/15/19 07:17 Pulse 79 04/15/19 07:17 Resp 22 04/15/19 07:17 BP 151/77 04/15/19 07:17 Pulse Ox 97 04/15/19 07:17 Vital Signs Reviewed: Yes Eye Exam: Normal Eyes: Positive: Conjunctiva Clear ENT: Positive: Normal ENT inspection, Hearing grossly normal, Pharynx normal, Nasal congestion, Nasal drainage, TMs normal. Negative: Pharyngeal erythema, TM bulging, TM dull, TM red Neck: Positive: Supple, Nontender, No Lymphadenopathy Respiratory: Positive: Chest non-tender, Lungs clear, Normal breath sounds Cardiovascular: Positive: RRR, No Murmur, Pulses Normal Skin Exam: Normal Respiratory Course/Dx - Differential Dx/Diagnosis Provider Diagnosis: URI (upper respiratory infection) Discharge ED - Sign-Out/Discharge Documenting (check all that apply): Patient Departure All imaging exams completed and their final reports reviewed: No Studies - Discharge Plan Condition: Stable Disposition: HOME Prescriptions: Benzonatate CAP* [Tessalon 100 MG CAP*] 100 mg PO TID #15 cap Patient Education Materials: Upper Respiratory Infection (ED) Referrals: [facility] [Primary Care Provider] - If Needed - Billing Disposition and Condition Condition: STABLE Disposition: Home
== END 2019-04-15 07:46 | disposition home or self-care (01) ==
LOC: UCCORT 07:01
DX: J06.9 Acute upper respiratory infection, unspecified (principal); I10 Essential (primary) hypertension; F17.210 Nicotine dependence, cigarettes, uncomplicated; Z79.899 Other long term (current) drug therapy; Z88.8 Allergy status to other drugs, medicaments and biological substances; Z91.09 Other allergy status, other than to drugs and biological substances
CPT/HCPCS: 87651; 99212; G0463